=== PATIENT | female | born 1985 | race Caucasian/White ===

== ENCOUNTER 2018-01-22 18:34 | Emergency (ER) | payer OTHER ==
[~2018-01-22] VITALS: Ht 165.1 cm; Wt 68.0 kg
[2018-01-22] MEDS ORDERED: LORAZEPAM 1 MG TABLET PO ONE (19:00)
[2018-01-22] MEDS ORDERED: IV NS 0.9% 1,000 ML BAG IV ONE (19:00)
[2018-01-22] MEDS ORDERED: ONDANSETRON 4 MG TAB.RAPDIS PO ONE (19:00)
[2018-01-22] MEDS ORDERED: LORAZEPAM 1 MG TABLET ONE (19:02)
[2018-01-22] MEDS ORDERED: ONDANSETRON 4 MG TAB.RAPDIS ONE (19:02)
--- NOTE | 2018-01-22 19:11 | NUR ---
BIB [place] C/O FEELING ANXIOUS WHILE DRIVING. PT IS VERY EMOTIONAL, CRYING, PT STS IT HAPPENDED BEFORE BUT NOT BAD TODAY. PLACED ON CONT CARDIAC AND POX MONITORING. ALL NEEDS ARE ATTENDED, WILL CONT TO MONITOR
[2018-01-22 20:33] LABS: BASOPHILS % (AUTO) 0.2 % (0.0-2.0); EOSINOPHILS % (AUTO) 0.2 % (0.0-6.0); HEMATOCRIT 36 % (33-45); LYMPHOCYTES # (AUTO) 1.1 /CMM (0.8-4.8); LYMPHOCYTES % (AUTO) 15.3 % (20.0-44.0); MEAN CORPUSCULAR HEMOGLOBIN 30 PG (26.0-33.0); MEAN CORPUSCULAR HGB CONC 34 g/dl (31.0-36.0); MEAN CORPUSCULAR VOLUME 88 fL (82-100); MONOCYTES # (AUTO) 0.4 /CMM (0.1-1.30); MONOCYTES % (AUTO) 5.5 % (2.0-12.0); NEUTROPHILS # (AUTO) 5.5 /CMM (1.8-8.9); NEUTROPHILS % (AUTO) 78.8 % (43.0-81.0); PLATELET COUNT (AUTO) 213 /CMM (150-450); RDW COEFFICIENT OF VARIATION 13.3 (11.5-15.0); RED BLOOD CELL COUNT(AUTO) 4.03 MIL/uL (4.0-5.2)
[2018-01-22 20:47] LABS: INR 0.98 (0.85-1.15)
[2018-01-22 20:51] LABS: CALCIUM, SERUM 8.2 mg/dL (8.5-10.1); CARBON DIOXIDE 23 mmol/L (21-32); CHLORIDE 106 mmol/L (98-107); CREATININE 0.8 mg/dL (0.6-1.3); GLUCOSE 86 mg/dL (74-106); POTASSIUM 4.2 mmol/L (3.5-5.1); SODIUM SERUM 139 mmol/L (136-145); UREA NITROGEN, BLOOD 6 mg/dL (7-18)
[2018-01-22 20:57] LABS: ALANINE AMINOTRANSFERASE 17 U/L (12-78); ALBUMIN 3.7 g/dL (3.4-5.0); ALKALINE PHOSPHATASE 86 U/L (46-116); ASPARTATE AMINOTRANSFERASE 20 U/L (15-37); BILIRUBIN,DIRECT 0.1 mg/dL (0.0-0.2); BILIRUBIN,TOTAL 0.4 mg/dL (0.2-1.0); TOTAL PROTEIN, SERUM 7.1 g/dL (6.4-8.2)
[2018-01-22 20:59] LABS: TROPONIN I < 0.017 ng/mL (0.00-0.056)
[2018-01-22 21:12] LABS: THYROID STIMULATING HORMONE 1.204 uIU/mL (0.358-3.74)
[2018-01-22 22:00] VITALS: BP 131/79
== END 2018-01-22 22:00 | disposition home or self-care (01) ==
LOC: ER 18:37
DX: F41.9 Anxiety disorder, unspecified (principal); E86.0 Dehydration; F14.90 Cocaine use, unspecified, uncomplicated; F10.10 Alcohol abuse, uncomplicated; Y90.9 Presence of alcohol in blood, level not specified
CPT/HCPCS: 36415; 71045; 80048; 80076; 82962; 83690; 84443; 84484; 85025; 85730; 93005; 96360; 99285; A4606; J7030; Q0162; Z7610